=== PATIENT | female | born 1965 | race Caucasian/White ===

== ENCOUNTER 2019-12-21 06:32 | Inpatient (IN) ==
[2019-12-21] MEDS ORDERED: ANCEF VIAL 1 GRAM IVP ONE (06:42)
[2019-12-21] MEDS ORDERED: D5 1/2 NS 1000 ML 1,000 ML IV SCH (06:42)
[2019-12-21] MEDS ORDERED: ANCEF 1 GRAM IV PREMIX* 1 G/50 ML BAG IV ONE (06:44)
[2019-12-21] MEDS ORDERED: ProvayBLUE 0.5% ONE (06:53)
[2019-12-21] MEDS ORDERED: BETADINE SOLN ONE (06:54)
[2019-12-21] MEDS ORDERED: DECADRON INJ ONE ×2 (06:58→07:25)
[2019-12-21] MEDS ORDERED: OFIRMEV IV 1000 MG VIAL 1,000 MG/100 ML VIAL IV ONE (06:59)
[2019-12-21] MEDS ORDERED: NS 1000 ML 1,000 ML ONE (06:59)
[2019-12-21] MEDS ORDERED: FENTANYL INJ 100 mcg ONE (06:59)
[2019-12-21] MEDS ORDERED: ULTANE GAS IN ONE ×2 (07:03→07:25)
[2019-12-21] MEDS ORDERED: ZOFRAN INJ 4 MG VIAL ONE (07:25)
[2019-12-21] MEDS ORDERED: DIPRIVAN VIAL ONE (07:25)
[2019-12-21] MEDS ORDERED: TORADOL 30 MG VIAL ONE (07:25)
[2019-12-21] MEDS ORDERED: NEOSTIGMINE INJ ONE (07:25)
[2019-12-21] MEDS ORDERED: QUELICIN (OR ANECTINE) ONE (07:25)
[2019-12-21] MEDS ORDERED: VERSED ONE (07:25)
[2019-12-21] MEDS ORDERED: ROBINUL ONE (07:25)
[2019-12-21] MEDS ORDERED: XYLOCAINE 1 % (PLAIN) ONE (07:25)
[2019-12-21] MEDS ORDERED: NORCURON INJ 10 MG VIAL ONE (07:25)
[2019-12-21] MEDS ORDERED: ZOFRAN INJ 4 MG VIAL IVP PRN ×2 (09:30→11:56)
[2019-12-21] MEDS ORDERED: BENADRYL INJ 50 MG VIAL IVP PRN ×2 (09:30→11:56)
[2019-12-21] MEDS ORDERED: PHENERGAN INJ 25 MG IM PRN (09:30)
[2019-12-21] MEDS ORDERED: REGLAN INJ 10 MG VIAL IVP PRN (09:30)
[2019-12-21] MEDS: DILAUDID INJ IVP PRN ×3 (09:40→09:50)
[2019-12-21] MEDS ORDERED: TORADOL 30 MG VIAL IVP PRN (11:56)
[2019-12-21] MEDS ORDERED: MORPHINE SULFATE PCA 30 MG IVP PRN (11:56)
[2019-12-21] MEDS: D5 1/2 NS 1000 ML 1,000 ML IV SCH ×3 (18:29→23:49)
[2019-12-22] MEDS: D5 1/2 NS 1000 ML 1,000 ML IV SCH ×5 (05:10→22:30)
[2019-12-22 06:03] LABS: BASOPHILS % (AUTO) 0.3 % (0.2-1.0); HEMATOCRIT 28.6 % (36.0-47.0); HEMOGLOBIN 8.7 g/dL (12.0-16.0); LYMPHOCYTES # (AUTO) 1.5 X10^3/uL (1.3-2.9); LYMPHOCYTES % (AUTO) 13.3 % (21.0-51.0); MEAN CORPUSCULAR HEMOGLOBIN 20.3 pg (27.0-34.0); MEAN CORPUSCULAR HGB CONC 30.5 g/dL (33.0-35.0); MEAN CORPUSCULAR VOLUME 66.4 fL (80.0-100.0); MEAN PLATELET VOLUME 7.7 fL (7.4-11.0); MONOCYTES # (AUTO) 0.9 x10^3/uL (0.3-0.8); MONOCYTES % (AUTO) 7.4 % (0.0-13.0); NEUTROPHILS # (AUTO) 9.1 x10^3/uL (2.2-4.8); PLATELET COUNT 359 X10^3/uL (150.0-450.0); RED CELL DISTRIBUTION WIDTH 17.2 % (11.6-16.5); WHITE BLOOD COUNT 11.5 X10^3/uL (3.6-10.0)
[2019-12-22 06:16] LABS: BLOOD UREA NITROGEN 8 mg/dL (7-18); CALCIUM 8.2 mg/dL (8.5-10.1); CARBON DIOXIDE 27.8 mmol/L (21-32); CHLORIDE 104 mmol/L (98-107); COR NA(FOR HYPERGLY) 139 mmol/L (136-145); CREATININE 0.84 mg/dL (0.55-1.02); SODIUM 137 mmol/L (136-145); eGFR NON BLACK RACES > 60 (>60)
[2019-12-22 06:58] LABS: HYPOCHROMASIA 2+; MICROCYTOSIS 1+; PLATELET MORPHOLOGY COMMENT NORMAL (NORMAL)
[2019-12-22] MEDS ORDERED: MOTRIN TAB 800 MG PO PRN (07:48)
[2019-12-22] MEDS: PROTONIX TAB 40 MG PO SCH (08:38)
[2019-12-22] MEDS: COLACE CAP 100 MG PO SCH ×2 (08:38→20:19)
[2019-12-22] MEDS: FLONASE NASAL SPRAY ENOSTRIL SCH (08:38)
[2019-12-22 09:51] VITALS: BMI 33.5
[2019-12-22] MEDS: BACTROBAN TOPICAL OINT TOP SCH ×2 (14:00→21:05)
[2019-12-22] MEDS: PERCOCET TAB 5/325 MG PO PRN ×2 (14:00→20:19)
[2019-12-22] MEDS ORDERED: REGLAN TAB 10 MG PO PRN (16:06)
[2019-12-22] MEDS ORDERED: REGLAN TAB 10 MG PO ONE (16:23)
[2019-12-22] MEDS: FERROUS GLUCONATE PO SCH (16:25)
[2019-12-23] MEDS: PERCOCET TAB 5/325 MG PO PRN ×2 (01:43→05:51)
[2019-12-23] MEDS: D5 1/2 NS 1000 ML 1,000 ML IV SCH (05:51)
[2019-12-23] MEDS: FERROUS GLUCONATE PO SCH (06:01)
[2019-12-23] MEDS: BACTROBAN TOPICAL OINT TOP SCH (06:01)
[2019-12-23] MEDS: PROTONIX TAB 40 MG PO SCH (08:06)
[2019-12-23] MEDS: FLONASE NASAL SPRAY ENOSTRIL SCH (08:06)
[2019-12-23] MEDS: COLACE CAP 100 MG PO SCH (08:06)
[2019-12-23 10:45] VITALS: BP 111/56
== END 2019-12-23 10:50 | disposition home or self-care (01) | DRG 743 ==
LOC: MED/SURG 06:32 → EDUNIT# 07:30
PROVIDERS: ADMIT Specialist; ATTEND Specialist
DX: D25.2 Subserosal leiomyoma of uterus; R10.2 Pelvic and perineal pain; N95.0 Postmenopausal bleeding; K21.9 Gastro-esophageal reflux disease without esophagitis